=== PATIENT | male | born 2000 | race Caucasian/White ===

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

== ENCOUNTER 2022-11-01 10:57 | Emergency (ER) | payer MEDICAID ==
[~2022-11-01] VITALS: Ht 180.3 cm; Wt 65.9 kg
[2022-11-01 11:05] VITALS: BP 130/79
[2022-11-01] MEDS ORDERED: dexamethasone sod phosphate 10mg/ml inj IV STA (12:43)
[2022-11-01] MEDS ORDERED: ketorolac trometh. 30mg/ml inj. IV ONE (12:45)
[2022-11-01] MEDS ORDERED: normal saline 1000ML IV soln IVB ONE (12:45)
[2022-11-01] MEDS ORDERED: ONDA4TAB12 PO (14:35)
[2022-11-01] MEDS ORDERED: AMOX-117 PO (14:35)
[2022-11-01] MEDS ORDERED: PRED20TA PO (14:35)
[2022-11-01] MEDS ORDERED: LIDO20SO16 PO (14:35)
== END 2022-11-01 14:52 | disposition home or self-care (01) ==
LOC: ER 10:58
DX: J40 Bronchitis, not specified as acute or chronic (principal); Z20.822 Contact with and (suspected) exposure to COVID-19; R51.9 Headache, unspecified; J02.9 Acute pharyngitis, unspecified; R05.9 Cough, unspecified; F31.9 Bipolar disorder, unspecified; F17.200 Nicotine dependence, unspecified, uncomplicated; Z79.2 Long term (current) use of antibiotics; Z79.899 Other long term (current) drug therapy
CPT/HCPCS: 87502; 87503; 87635; 96361; 96374; 96375; 99284; C9803; J1100; J1885; J7030